=== PATIENT | female | born 1995 | race African-American/Black ===

== ENCOUNTER 2016-07-07 02:02 | Emergency (ER) | payer OTHER ==
[2016-07-07 02:33] VITALS: BP 118/75
[2016-07-07] MEDS ORDERED: Ondansetron INJ* 2 MG/ML VIAL IV ONE (02:42)
[2016-07-07] MEDS ORDERED: NS 0.9% 1000 ML* 2,000 ML IV ONE (02:42)
[2016-07-07 03:47] LABS: Hematocrit 45 % (35-47); Hemoglobin 14.6 g/dl (12.0-16.0); Mean Corpuscular HGB Conc 33 g/dl (31-36); Mean Corpuscular Hemoglobin 27 pg (27-31); Mean Corpuscular Volume 83 fL (80-97); Mean Platelet Volume 8 um3 (7.4-10.4); Red Blood Count 5.43 10^6/ul (4.0-5.4); Red Cell Distribution Width 14 % (10.5-15); White Blood Count 10.3 10^3/ul (3.5-10.8)
[2016-07-07 03:53] LABS: Add Diff/Slide Review? Slide Review Added; Comments Flag Yes
[2016-07-07 03:56] LABS: ALT 20 U/L (7-52); AST 20 U/L (13-39); Albumin 4.8 g/dL (3.2-5.2); Alkaline Phosphatase 60 U/L (34-104); Anion Gap 6 mmol/L (2-11); BUN/Creatinine Ratio 21.3 (8-20); Blood Urea Nitrogen 13 mg/dL (6-24); CO2 Carbon Dioxide 27 mmol/L (22-32); Calcium 9.8 mg/dL (8.6-10.3); Chloride 106 mmol/L (101-111); EGFR African American 160.8 (>60); Globulin 3.1 g/dL (2-4); Glucose 96 mg/dL (70-100); Lipase 10 U/L (11.0-82.0); Potassium 3.9 mmol/L (3.5-5.0); Sodium 139 mmol/L (133-145); Total Protein 7.9 g/dL (6.4-8.9)
[2016-07-07 03:59] LABS: Urine Bacteria Absent (Absent); Urine Bilirubin Negative (Negative); Urine Glucose Negative (Negative); Urine Nitrite Negative (Negative)
[2016-07-07] MEDS ORDERED: Iohexol 300* (CONTRAST) 10 ML SDV IV ONE (04:05)
--- NOTE | 2016-07-07 05:28 | ED ---
Zi Sharma Rebecca, scribed for Eric Melouel on 07/07/16 at 0243 . Abdominal Pain/Female - HPI Summary HPI Summary: Pt is a 21 y/o F who presents to ED c/o abd pain. Pain began suddenly 3 hours ago (2299) and has been constant since onset. Pain is diffuse without radiation , is characterized as aching and currently ranked 4/10. Sx aggravated and alleviated by nothing. Additionally c/o V/D since 2299, quoting 4 episodes of vomiting and countless bouts of diarrhea. Additionally c/o fever, stating recent "hot flashes" and constipation for weeks prior to current sx. PMHx "bad digestive system." - History of Current Complaint Chief Complaint: EDNauseaVomitDiarrh Stated Complaint: FLU LIKE SYMPTOMS Hx Obtained From: Patient Hx Last Menstrual Period: LAST WEEK IN DECEMBER 2014 Onset/Duration: Sudden Onset, Lasting Hours - 3 hours, Still Present Timing: Constant Severity Initially: Moderate Severity Currently: Moderate Pain Intensity: 4 Pain Scale Used: 0-10 Numeric Location: Diffuse Radiates: No Character: Dull Aggravating Factor(s): Nothing Alleviating Factor(s): Nothing Associated Signs and Symptoms: Positive: Fever, Constipation, Vomiting, Diarrhea Allergies/Adverse Reactions: Allergies Allergy/AdvReac Type Severity Reaction Status Date / Time Amoxicillin [From Augmentin] Allergy Unknown Unknown Verified 02/17/15 19:35 Reaction Details Clavulanic Acid Allergy Unknown Unknown Verified 02/17/15 19:35 [From Augmentin] Reaction Details PMH/Surg Hx/FS Hx/Imm Hx Endocrine/Hematology History: Denies: Hx Diabetes Cardiovascular History: Denies: Hx Hypertension GI History: Reports: Other GI Disorders - "bad digestive system" Infectious Disease History: No Infectious Disease History: Denies: Traveled Outside the [place] in Last 30 Days - Family History Known Family History: Negative: Hypertension, Diabetes - Social History Alcohol Use: None Substance Use Type: Reports: None Smoking Status (MU): Never Smoked Tobacco Review of Systems Positive: Fever - "hot flashes" Positive: Abdominal Pain - diffuse, Vomiting - 4x, Diarrhea, Other - Constipation for weeks prior to current sx All Other Systems Reviewed And Are Negative: Yes Physical Exam Triage Information Reviewed: Yes Vital Signs On Initial Exam: Initial Vitals Temp Pulse Resp BP Pulse Ox 98.3 F 92 14 118/75 100 07/07/16 02:30 07/07/16 02:30 07/07/16 02:30 07/07/16 02:30 07/07/16 02:30 Vital Signs Reviewed: Yes Appearance: Positive: Well-Appearing, No Pain Distress Skin: Positive: Warm, Skin Color Reflects Adequate Perfusion, Dry Head/Face: Positive: Normal Head/Face Inspection Eyes: Positive: EOMI, MARRY ENT: Positive: Normal ENT inspection Neck: Positive: Supple, Nontender Respiratory/Lung Sounds: Positive: Clear to Auscultation, Breath Sounds Present Cardiovascular: Positive: RRR, Pulses are Symmetrical in both Upper and Lower Extremities Abdomen Description: Positive: Soft. Negative: Nontender - Diffuse tenderness of the abdomen Bowel Sounds: Positive: Present Musculoskeletal: Positive: Normal, Strength/ROM Intact Neurological: Positive: Normal, Sensory/Motor Intact, Alert, Oriented to Person Place, Time Diagnostics - Vital Signs Vital Signs Temp Pulse Resp BP Pulse Ox 07/07/16 02:30 98.3 F 92 14 118/75 100 - Laboratory Result Diagrams: 07/07/16 03:30 07/07/16 03:30 Lab Statement: Any lab studies that have been ordered have been reviewed, and results considered in the medical decision making process. - CT CT Abd/Pel CT Interpretation: No Acute Changes - No inflammatory process identified in the abdomen or pelvis. No abdominal mass, adenopathy or collection seen. CT Interpretation Completed By: Radiologist Abdominal Pain Fem Course/Dx - Course Course Of Treatment: Pt is a 21 y/o F who presents to ED with a CC of V/D for 3 hours. Additionally c/o fevers/"hot flashes" and constipation (for weeks prior to tonight's sx). CT Abd/Pel reveals no acute abdominal pathology. Pt will be d/ c to home with a dx of gastroenteritis and a followup with her PCP. - Diagnoses Provider Diagnoses: Gastroenteritis Discharge - Discharge Plan Condition: Stable Disposition: HOME Prescriptions: Ondansetron [Zofran Odt] 4 mg PO TID #20 tab Patient Education Materials: Gastroenteritis (ED) Referrals: ARTHUR Tobin [Primary Care Provider] - 3 Days (Follow up with your primary care physician within the next 3 days. ) The documentation as recorded by the Zi cha Rebecca accurately reflects the service I personally performed and the decisions made by me, Balaji Melo.
--- NOTE | 2016-07-07 08:25 | RAD ---
CLINICAL HISTORY: Diverticulitis, nausea vomiting and diarrhea COMPARISON: None TECHNIQUE: Multiple contiguous axial CT scans were obtained of the abdomen and pelvis after the administration of intravenous contrast. Coronal and sagittal multiplanar reformations are submitted for review. Oral contrast was not administered. Delayed images were obtained through the abdomen FINDINGS: LUNG BASES: The lung bases are clear. LIVER: The liver is normal in shape, size, contour, and attenuation. BILE DUCTS: There is no intrahepatic or extrahepatic biliary dilatation. GALLBLADDER: The gallbladder is normal, without pericholecystic inflammatory change. PANCREAS: The pancreas is normal, without mass or ductal dilatation. SPLEEN: Normal in size and appearance. UPPER GI TRACT: Evaluation of the gastrointestinal tract is limited by incomplete gastric distention. The upper GI tract is unremarkable. SMALL BOWEL AND MESENTERY: The small bowel is normal in contour, course, and caliber. There is no obstruction or dilatation. COLON: The colon is normal in contour, course, caliber. There is no pericolonic inflammatory change. ADRENALS: Normal bilaterally. KIDNEYS: The kidneys are normal in shape, size, contour, and axis. There is no hydronephrosis or nephrolithiasis. BLADDER: The bladder is smooth in contour. PELVIC ORGANS: There is enlargement of the gonadal veins bilaterally with prominence of the vasculature along the broad ligaments bilaterally. AORTA: The aorta is normal. IVC: Unremarkable LYMPH NODES: There is no lymphadenopathy by size criteria. ABDOMINAL WALL: There is no evidence for abdominal wall hernia. BONES AND SOFT TISSUES: Unremarkable OTHER: None IMPRESSION: 1. NO OBSTRUCTION. 2. PROMINENCE OF THE VASCULATURE ALONG THE BROAD LIGAMENTS BILATERALLY WITH ENLARGEMENT OF THE GONADAL VEINS. WHILE NONSPECIFIC, THIS CAN BE SEEN IN ASSOCIATION WITH PELVIC CONGESTION SYNDROME
== END 2016-07-07 05:05 | disposition home or self-care (01) ==
LOC: ED 02:02
DX: K52.9 Noninfective gastroenteritis and colitis, unspecified (principal); R10.9 Unspecified abdominal pain; R11.10 Vomiting, unspecified; R19.7 Diarrhea, unspecified; K59.00 Constipation, unspecified
CPT/HCPCS: 36415; 74177; 80053; 81003; 81015; 83690; 84702; 85025; 87086; 96374; 96375; 99282; J2405; Q9967

== ENCOUNTER 2017-02-16 20:17 | Emergency (ER) | payer OTHER ==
[2017-02-16 20:29] VITALS: BP 122/69
--- NOTE | 2017-02-16 21:42 | UC ---
Throat Pain/Nasal Gerhard HPI - HPI Summary HPI Summary: 21 y/o female presents to the urgent care c/o sore throat, nasal congestion, productive cough and ear popping since yesterday. Pt states difficulty swallowing, pain is 7/10. She has decrease appetite with subjective fever at home. She has not taking anything to alleviate symptoms. Pt denies SOB, chest pain, N/V/D - History of Current Complaint Chief Complaint: UCRespiratory Stated Complaint: CONGESTION/SORE THROAT Time Seen by Provider: 02/16/17 21:34 Hx Obtained From: Patient Hx Last Menstrual Period: LAST WEEK IN DECEMBER 2014 ?: No Onset/Duration: Gradual Onset, Lasting Days, Still Present Severity: Moderate Pain Intensity: 7 Pain Scale Used: 0-10 Numeric Cough: Productive - clear phlegm Associated Signs & Symptoms: Positive: Dysphagia, Fever - subjective at home - Epiglottits Risk Factors Epiglottis Risk Factors: Negative - Allergies/Home Medications Allergies/Adverse Reactions: Allergies Allergy/AdvReac Type Severity Reaction Status Date / Time Amoxicillin [From Augmentin] Allergy Unknown Unknown Verified 02/16/17 20:29 Reaction Details Clavulanic Acid Allergy Unknown Unknown Verified 02/16/17 20:29 [From Augmentin] Reaction Details Home Medications: Home Medications ARIPiprazole TAB* [Abilify TAB*] 5 mg PO DAILY 02/16/17 [History Confirmed 11/27] Escitalopram Oxalate [Lexapro 10 mg] 10 mg PO DAILY 02/16/17 [History Confirmed 02/16/17] PMH/Surg Hx/FS Hx/Imm Hx Previously Healthy: Yes Psychological History: Depression - Surgical History Surgical History: None - Family History Known Family History: Negative: Hypertension, Diabetes Family History: Asthma - Social History Occupation: Employed Full-time Lives: With Family Alcohol Use: None Substance Use Type: None Smoking Status (MU): Never Smoked Tobacco Household Exposure Type: Cigarettes - Immunization History Most Recent Influenza Vaccination: Not the Vaccination Up to Date: Yes Review of Systems Constitutional: Fever - subjective at home Skin: Negative Eyes: Negative ENT: Sore Throat, Nasal Discharge - clear discharge Respiratory: Cough - productive Cardiovascular: Negative Gastrointestinal: Negative Genitourinary: Negative Motor: Negative Neurovascular: Negative Musculoskeletal: Negative Neurological: Negative Psychological: Negative Is Patient Immunocompromised?: No All Other Systems Reviewed And Are Negative: Yes Physical Exam Triage Information Reviewed: Yes Appearance: Well-Appearing, No Pain Distress, Well-Nourished Vital Signs: Initial Vital Signs Temp 100.4 F 02/16/17 20:23 Pulse 87 02/16/17 20:23 Resp 17 02/16/17 20:23 BP 122/69 02/16/17 20:23 Pulse Ox 100 02/16/17 20:23 Vital Signs Reviewed: Yes Eye Exam: Normal Eyes: Positive: Conjunctiva Clear - PERRLA, EOMI ENT: Positive: Normal ENT inspection, Hearing grossly normal, Pharyngeal erythema, TMs normal, Tonsillar swelling. Negative: Nasal congestion, Nasal drainage, Tonsillar exudate Neck exam: Normal Neck: Positive: Supple, Nontender, No Lymphadenopathy Respiratory Exam: Normal Respiratory: Positive: Chest non-tender, Lungs clear, Normal breath sounds Cardiovascular Exam: Normal Cardiovascular: Positive: RRR, No Murmur, Pulses Normal Abdominal Exam: Normal Abdomen Description: Positive: Nontender, No Organomegaly, Soft. Negative: CVA Tenderness (R), CVA Tenderness (L) Bowel Sounds: Positive: Present Musculoskeletal Exam: Normal Musculoskeletal: Positive: Strength Intact, ROM Intact, No Edema Neurological Exam: Normal Psychological Exam: Normal Skin Exam: Normal Throat Pain/Nasal Course/Dx - Course Course Of Treatment: 21 y/o female presents to the urgent care c/o sore throat, nasal congestion, productive cough and ear popping since yesterday. Pt states difficulty swallowing, pain is 7/10. She has decrease appetite with subjective fever at home. She has not taking anything to alleviate symptoms. Pt denies SOB , chest pain, N/V/D. Rapid strep: negative. Pt with a Viral pharyngitis. Pt Rx ibuprofen PO to alleviates symptoms of pain and swelling. Increse fluid intake, and rest. Advised on hand washing to avoid spreading. If symptoms do not improve or worsen advised to return to the urgent care or f/u with her PCP for further evaluation and treatment. Pt understood and agreed - Differential Dx/Diagnosis Differential Diagnosis/HQI/PQRI: Laryngitis, Mononucleosis, Otitis Media, Pharyngitis, Sinusitis, Tonsillitis Provider Diagnoses: 1- Viral pharyngitis Discharge - Discharge Plan Condition: Stable Disposition: HOME Prescriptions: Ibuprofen TAB* [Motrin TAB* 800 MG] 800 mg PO Q6H #20 tab Patient Education Materials: Pharyngitis (ED) Forms: *Work Release Referrals: Dillan Pagan MD [Primary Care Provider] - If Needed Additional Instructions: 1-Please take ibuprofen PO q6-8hrs prn as instructed after meals to alleviate pain and swelling.Increase fluid intake,eat well and rest 2-If symptoms do not improve or worsen please return to the urgent care or f/u with your PCP for further evaluation and treatment.
[2017-02-16] MEDS ORDERED: Ibuprofen TAB* 400 MG PO ONE (21:43)
== END 2017-02-16 21:52 | disposition home or self-care (01) ==
LOC: UCCORT 20:17
DX: J02.8 Acute pharyngitis due to other specified organisms (principal); F32.9 Major depressive disorder, single episode, unspecified; Z88.3 Allergy status to other anti-infective agents
CPT/HCPCS: 87651; 99212; A9270-GY; G0463

== ENCOUNTER 2017-03-16 09:47 | Emergency (ER) | payer OTHER ==
[2017-03-16 10:16] VITALS: BP 117/73
--- NOTE | 2017-03-16 10:37 | UC ---
Skin Complaint HPI - HPI Summary HPI Summary: Patient presents to the with CC of small lesion to the lower lip. She states she has a history of herpes type II and has not had an outbreak for over 2 years. She thought she bit her lip and has used benadryl 50mg and ice to the area x 2 days without relief. She also notes to a small red bump under the left lower medial lid of the eye resembling a stye. She has been stressed recently and states usually she has an out break when she is stressed. There is a small ulcerative lesion on the inside of the lower lip just behind the outer lip lesion resembling a aphthous stomatitis. She denies WARE, abdominal pain , fevers, sweats or chills. Otherwise healthy and takes no medications. - History of Current Complaint Chief Complaint: UCAllergicReaction Time Seen by Provider: 03/16/17 09:58 Stated Complaint: ALLERGIC REACTION Hx Obtained From: Patient Hx Last Menstrual Period: 03/14/17 ?: No Onset/Duration: Sudden Onset Skin Exposure Onset/Duration: Days Ago Timing: Constant Onset Severity: Moderate Current Severity: Moderate Pain Intensity: 2 Pain Scale Used: 0-10 Numeric Location: Face Character: Swelling, Redness, Raised Aggravating Factor(s): Touch Alleviating Factor(s): Cold Compresses Associated Signs & Symptoms: Positive: Negative - Allergy/Home Medications Allergies/Adverse Reactions: Allergies Allergy/AdvReac Type Severity Reaction Status Date / Time Amoxicillin [From Augmentin] Allergy Unknown Unknown Verified 03/16/17 09:51 Reaction Details Clavulanic Acid Allergy Unknown Unknown Verified 03/16/17 09:51 [From Augmentin] Reaction Details Home Medications: Home Medications diPHENhydraMINE PO* [Benadryl PO 25 MG TAB*] 50 mg PO Q6H PRN 03/16/17 [History Confirmed 03/16/17] hydrOXYzine HCL TAB* [Atarax 10 MG TAB*] 10 mg PO DAILY 03/16/17 [History Confirmed 03/16/17] Review of Systems Constitutional: Negative Skin: Other - lesion just inferior to the right lower lip with 2 small vesicles Eyes: Negative Respiratory: Negative Cardiovascular: Negative Motor: Negative Neurovascular: Negative Neurological: Negative Psychological: Negative Is Patient Immunocompromised?: No All Other Systems Reviewed And Are Negative: Yes PMH/Surg Hx/FS Hx/Imm Hx Previously Healthy: Yes - Surgical History Surgical History: None - Family History Known Family History: Negative: Hypertension, Diabetes Family History: Asthma - Social History Occupation: Employed Part-time Lives: With Family Alcohol Use: None Substance Use Type: None Smoking Status (MU): Never Smoked Tobacco Household Exposure Type: Cigarettes - Immunization History Most Recent Influenza Vaccination: Not the Season Vaccination Up to Date: Yes Physical Exam Triage Information Reviewed: Yes Appearance: Well-Appearing, Well-Nourished Vital Signs: Initial Vital Signs Temp 98.6 F 03/16/17 09:54 Pulse 76 03/16/17 09:54 Resp 18 03/16/17 09:54 BP 117/73 03/16/17 09:54 Pulse Ox 100 03/16/17 09:54 Vital Signs Reviewed: Yes Eye Exam: Normal Eyes: Positive: Conjunctiva Clear, Other: - small lesion to the medial left lower eyelid resembling a stye - painful to touch - .1cm Neck exam: Normal Neck: Positive: Supple, No Lymphadenopathy Respiratory Exam: Normal Respiratory: Positive: Chest non-tender, Lungs clear Cardiovascular Exam: Normal Cardiovascular: Positive: RRR Musculoskeletal Exam: Normal Musculoskeletal: Positive: Strength Intact Neurological Exam: Normal Psychological Exam: Normal Psychological: Positive: Normal Response To Family Skin: Positive: significant lesion(s) - lesion just inferior to the right lower lip Course/Dx - Course Course Of Treatment: Patient is evaluated for a lesion just inferior to the right lower lip with 2 small vesicles and small lesion to the medial left lower eyelid resembling a stye - painful to touch - .1cm. 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 Will defer at this time any optho abx d/t size and recent appearance yesterday. Likely will improve with warm compresses. Given instructions to take Lysine 1000mg daily to prevent further outbreaks, use ice and tea tree oil. Given rx for abreva and valacyclovir 1000mg TID x 7 days for outbreak. She is OK with plan and will return for any worsening symptoms. - Differential Diagnoses - Skin Complaint Differential Diagnoses: Allergic Reaction, Impetigo, Urticaria - Diagnoses Provider Diagnoses: Herpes Simplex/ Stye Discharge - Discharge Plan Condition: Stable Disposition: HOME Prescriptions: Docosanol 10%* [Abreva 10%*] 1 applic TOPICAL 5ID #1 cre ValACYclovir (*) [Valtrex 1 GM(*)] 1 gm PO DAILY #21 tab Patient Education Materials: Genital Herpes Simplex (ED), Stye (ED) Referrals: Dillan Pagan MD [Primary Care Provider] - Additional Instructions: warm compresses to the eye 3-4 times per day tea tree oil, abreva (5 x daily) - rub in very well and ice to the lip Lysine 1000mg once daily, when having an outbreak - 6000mg once daily Valacyclovir 1000mg three times daily for 7 days Images Head: 1 - lesion just inferior to the right lower lip 2 - small .1 cm painful red lesion without surrounding erythema or eye involvement
== END 2017-03-16 10:31 | disposition home or self-care (01) ==
LOC: UCCORT 09:47
DX: B00.9 Herpesviral infection, unspecified (principal); H00.015 Hordeolum externum left lower eyelid; Z88.1 Allergy status to other antibiotic agents
CPT/HCPCS: 99212; G0463

== ENCOUNTER 2017-06-22 15:58 | Emergency (ER) | payer OTHER ==
--- NOTE | 2017-06-22 16:38 | UC ---
Skin Complaint HPI - HPI Summary HPI Summary: 22 year old female presents with oral lower lip blister. - History of Current Complaint Time Seen by Provider: 06/22/17 16:38 Stated Complaint: LIP COMPLAINT Hx Obtained From: Patient Hx Last Menstrual Period: LAST WEEK IN DECEMBER 2014 Onset/Duration: Sudden Onset Skin Exposure Onset/Duration: Hours Ago Onset Severity: Moderate Current Severity: Moderate Pain Scale Used: 0-10 Numeric - 2 Location: Discrete, Face Aggravating Factor(s): Wind Alleviating Factor(s): Nothing Associated Signs & Symptoms: Positive: Negative - Allergy/Home Medications Allergies/Adverse Reactions: Allergies Allergy/AdvReac Type Severity Reaction Status Date / Time Amoxicillin [From Augmentin] Allergy Unknown Unknown Verified 06/22/17 16:33 Reaction Details Clavulanic Acid Allergy Unknown Unknown Verified 06/22/17 16:33 [From Augmentin] Reaction Details Home Medications: Home Medications Nuva Ring 06/22/17 [History] Review of Systems Constitutional: Negative Skin: Negative Eyes: Negative ENT: Other - lower lip blister Respiratory: Negative Cardiovascular: Negative Gastrointestinal: Negative Genitourinary: Negative Motor: Negative Neurovascular: Negative Musculoskeletal: Negative Neurological: Negative Psychological: Negative All Other Systems Reviewed And Are Negative: Yes PMH/Surg Hx/FS Hx/Imm Hx Previously Healthy: Yes - Surgical History Surgical History: None - Family History Known Family History: Negative: Hypertension, Diabetes Family History: Asthma - Social History Alcohol Use: None Substance Use Type: None Smoking Status (MU): Never Smoked Tobacco Household Exposure Type: Cigarettes - Immunization History Most Recent Influenza Vaccination: Not the Season Vaccination Up to Date: Yes Physical Exam Triage Information Reviewed: Yes Vital Signs Reviewed: Yes Eye Exam: Normal ENT: Positive: Other - lower lip blister Dental Exam: Normal Neck exam: Normal Neck: Positive: 1 Respiratory Exam: Normal Cardiovascular Exam: Normal Abdominal Exam: Normal Musculoskeletal Exam: Normal Neurological Exam: Normal Psychological Exam: Normal Skin Exam: Normal Course/Dx - Diagnoses Provider Diagnoses: blister lower lip Discharge - Discharge Plan Condition: Stable Disposition: HOME Prescriptions: Acyclovir* [Zovirax 200 MG CAP*] 200 mg PO 5ID #35 cap LoraTADine TAB(NF) [Claritin 10 MG TAB(NF)] 10 mg PO DAILY #30 tab Methylprednisolone [Medrol Dosepak 4 MG*] 4 mg PO .SEE JESSY INSTRUCTION #21 tab Patient Education Materials: Blister (ED) Referrals: No Primary Care Phys,NOPCP [Primary Care Provider] -
[2017-06-22 16:41] VITALS: BP 123/74
== END 2017-06-22 16:58 | disposition home or self-care (01) ==
LOC: UCCORT 15:58
DX: S00.521A Blister (nonthermal) of lip, initial encounter (principal); X58.XXXA Exposure to other specified factors, initial encounter; Y93.9 Activity, unspecified; Y92.9 Unspecified place or not applicable; Z88.1 Allergy status to other antibiotic agents; Z77.22 Contact with and (suspected) exposure to environmental tobacco smoke (acute) (chronic)
CPT/HCPCS: 99212; G0463

== ENCOUNTER 2017-07-04 08:37 | Emergency (ER) | payer OTHER ==
[2017-07-04 09:08] VITALS: BP 121/82
--- NOTE | 2017-07-04 09:47 | UC ---
Rectal Pain HPI - HPI Summary HPI Summary: Pt c/o BRBPR this morning with BM. Pt has history of hemorrhoids and constipation. Pt states she has been constipated X 5 days. - History Of Current Complaint Chief Complaint: UCGeneralIllness Stated Complaint: PERSONAL Time Seen by Provider: 07/04/17 08:41 Hx Obtained From: Patient Hx Last Menstrual Period: 06/06/17 ?: No Onset/Duration: Gradual Onset Severity Initially: Mild Severity Currently: Mild Pain Intensity: 7 Pain Scale Used: 0-10 Numeric Location Of Pain: Anal Character: Sharp, Burning Aggravating Factor(s): Bowel Movement Alleviating Factor(s): Hemorroidal Meds - Tucks OTC Associated Signs And Symptoms: Positive: Rectal Bleeding, Bright Red Blood w/ Stool, Constipation Related History: Similar Episode/Dx As - hemorrhoids and constipation, Hemorrhoids - Allergies/Home Medications Allergies/Adverse Reactions: Allergies Allergy/AdvReac Type Severity Reaction Status Date / Time Amoxicillin [From Augmentin] Allergy Unknown Unknown Verified 07/04/17 09:00 Reaction Details Clavulanic Acid Allergy Unknown Unknown Verified 07/04/17 09:00 [From Augmentin] Reaction Details Acyclovir Allergy See Comment Verified 07/04/17 09:05 PMH/Surg Hx/FS Hx/Imm Hx Previously Healthy: Yes - Surgical History Surgical History: None - Family History Known Family History: Negative: Hypertension, Diabetes Family History: Asthma - Social History Occupation: Employed Full-time Lives: With Family Alcohol Use: None Substance Use Type: None Smoking Status (MU): Never Smoked Tobacco Have You Smoked in the Last Year: No Household Exposure Type: Cigarettes - Immunization History Most Recent Influenza Vaccination: Not the Season Vaccination Up to Date: Yes Review of Systems Constitutional: Negative Skin: Negative Eyes: Negative ENT: Negative Respiratory: Negative Cardiovascular: Negative Gastrointestinal: Abdominal Pain, Other - constipation, BRBPM Genitourinary: Negative Motor: Negative Neurovascular: Negative Musculoskeletal: Negative Neurological: Negative Psychological: Negative Is Patient Immunocompromised?: No All Other Systems Reviewed And Are Negative: Yes Physical Exam Triage Information Reviewed: Yes Appearance: Well-Appearing Vital Signs: Initial Vital Signs Temp 99.4 F 07/04/17 09:06 Pulse 111 07/04/17 09:06 Resp 18 07/04/17 09:06 BP 121/82 07/04/17 09:06 Pulse Ox 100 07/04/17 09:06 Vital Signs Reviewed: Yes Eye Exam: Normal ENT Exam: Normal Dental Exam: Normal Neck exam: Normal Respiratory: Positive: No respiratory distress Abdomen Description: Positive: Other: - rectal exam, no hemorrhoids appreciated , no fissure appreciated, Bowel Sounds: Positive: Present Musculoskeletal Exam: Normal Neurological Exam: Normal Psychological Exam: Normal Skin Exam: Normal Rectal Pain Course/Dx - Course Course Of Treatment: I discussed with the pt ways to manage her c/o of constirpation and possible internal hemorrhoids. I encouraged her to f/u with her PCP and if symptoms worsen to seek medical care at the closest ER . Pt verbalized understanding and agreed to plan of care. - Differential Dx/Diagnosis Differential Diagnosis/HQI/PQRI: Hemorrhoid(s), Rectal Fissure, Other - constipation Provider Diagnoses: constipation. hemorrhoids Discharge - Discharge Plan Condition: Stable Disposition: HOME Patient Education Materials: Constipation (ED), Hemorrhoids (ED) Forms: *Work Release Referrals: No Primary Care Phys,NOPCP [Primary Care Provider] - If Needed Additional Instructions: to help alleviate your complaint of constipation and diagnoses of hemorrhoids, please keep well hydrated, eat a diet high in fiber and use of Over the counter colace to be used as directed.
== END 2017-07-04 09:35 | disposition home or self-care (01) ==
LOC: UCCORT 08:37
DX: K59.00 Constipation, unspecified (principal); K64.9 Unspecified hemorrhoids
CPT/HCPCS: 99211; G0463

== ENCOUNTER 2017-07-08 11:44 | Emergency (ER) | payer OTHER ==
[2017-07-08 12:56] VITALS: BP 102/68
--- NOTE | 2017-07-08 13:25 | UC ---
Complaint Female HPI - HPI Summary HPI Summary: 2 DAYS DYSURIA, FREQUENCY AND URGENCY. NO FEVER, NAUSEA OR BACK PAIN. NO VAGINAL D/C. IS CURRENTLY ON MENSES. - History Of Current Complaint Chief Complaint: UCGU Stated Complaint: URINARY Time Seen by Provider: 07/08/17 13:11 Hx Obtained From: Patient Hx Last Menstrual Period: 07/08/17 Onset/Duration: Sudden Onset, Lasting Days, Still Present Timing: Constant Severity Initially: Moderate Severity Currently: Moderate Pain Intensity: 4 Pain Scale Used: 0-10 Numeric Character: Burning Aggravating Factor(s): Urination Alleviating Factor(s): Nothing Associated Signs And Symptoms: Negative: Fever, Back Pain, Vaginal Discharge, Nausea - Allergies/Home Medications Allergies/Adverse Reactions: Allergies Allergy/AdvReac Type Severity Reaction Status Date / Time Amoxicillin [From Augmentin] Allergy Unknown Unknown Verified 07/08/17 12:50 Reaction Details Clavulanic Acid Allergy Unknown Unknown Verified 07/08/17 12:50 [From Augmentin] Reaction Details Acyclovir Allergy See Comment Verified 07/08/17 12:50 PMH/Surg Hx/FS Hx/Imm Hx - Additional Past Medical History Additional PMH: ALLERGIES - Surgical History Surgical History: None - Family History Known Family History: Negative: Hypertension, Diabetes Family History: Asthma - Social History Alcohol Use: None Substance Use Type: None Smoking Status (MU): Never Smoked Tobacco Have You Smoked in the Last Year: No Household Exposure Type: Cigarettes - Immunization History Most Recent Influenza Vaccination: Not the Season Most Recent Tetanus Shot: UTD Vaccination Up to Date: Yes Review of Systems Constitutional: Negative Respiratory: Negative Cardiovascular: Negative Gastrointestinal: Abdominal Pain Genitourinary: Dysuria, Frequency, Urgency All Other Systems Reviewed And Are Negative: Yes Physical Exam Triage Information Reviewed: Yes Appearance: Well-Appearing, No Pain Distress, Well-Nourished Vital Signs: Initial Vital Signs Temp 98.1 F 07/08/17 12:51 Pulse 80 07/08/17 12:51 Resp 16 07/08/17 12:51 BP 102/68 07/08/17 12:51 Pulse Ox 100 07/08/17 12:51 Vital Signs Reviewed: Yes Eyes: Positive: Conjunctiva Clear ENT: Positive: Hearing grossly normal Neck: Positive: Supple Respiratory: Positive: No respiratory distress, No accessory muscle use Cardiovascular: Positive: Pulses Normal Abdomen Description: Positive: Soft, Other: - SUPRAPUBIC TTP. Negative: CVA Tenderness (R), CVA Tenderness (L), Distended, Guarding Musculoskeletal: Positive: No Edema Neurological: Positive: Alert Psychological: Positive: Age Appropriate Behavior Skin: Negative: rashes Diagnostics - Laboratory Diagnostic Studies Completed/Ordered: URINE DIP SP. GR. 1.015, 1+ LEUKS, 2+ BLOOD (PT ON MENSES) Complaint Female Dx - Differential Dx/Diagnosis Provider Diagnoses: UTI Discharge - Discharge Plan Condition: Stable Disposition: HOME Prescriptions: Phenazopyridine TAB* [Pyridium TAB*] 200 mg PO TID #6 tab Sulfamethox/Trimethoprim DS* [Bactrim DS 800/160 TAB*] 1 tab PO BID #10 tab Patient Education Materials: Urinary Tract Infection in Women (ED) Forms: *Work Release Referrals: Shahla Guerra MD [Medical Doctor] - If Needed
--- NOTE | 2017-07-11 06:58 | UC ---
- Progress Note Progress Note: notify pt stop antibiotic no UTI recheck if still symptomatic
== END 2017-07-08 13:34 | disposition home or self-care (01) ==
LOC: UCCORT 11:44
DX: N39.0 Urinary tract infection, site not specified (principal)
CPT/HCPCS: 81003; 87086; 99212; G0463

== ENCOUNTER 2017-11-03 10:57 | Emergency (ER) | payer SELFPAY ==
[2017-11-03 11:24] VITALS: BP 125/81
--- NOTE | 2017-11-03 12:49 | UC ---
Skin Complaint HPI - HPI Summary HPI Summary: 22 yo female was out last PM fishing until 11 this am woke with s probable bite to her back burning pain swelling no itch hx of MRSA no hx of chicken pox no f/c - History of Current Complaint Chief Complaint: UCSkin Time Seen by Provider: 11/03/17 12:36 Stated Complaint: INSECT BITE ON BACK Hx Obtained From: Patient Hx Last Menstrual Period: 10/05/17 Onset/Duration: Sudden Onset Skin Exposure Onset/Duration: Hours Ago Timing: Constant Onset Severity: Moderate Current Severity: Moderate Pain Intensity: 7 Pain Scale Used: 0-10 Numeric Location: Other - left lower back Character: Swelling, Pain, Redness Aggravating Factor(s): Nothing Alleviating Factor(s): Nothing Associated Signs & Symptoms: Positive: Tenderness Related History: Insect Bite/Sting - Allergy/Home Medications Allergies/Adverse Reactions: Allergies Allergy/AdvReac Type Severity Reaction Status Date / Time MS Amoxicillin Allergy Unknown Unknown Verified 07/08/17 12:50 [From Augmentin] Reaction Details MS Clavulanic Acid Allergy Unknown Unknown Verified 07/08/17 12:50 [From Augmentin] Reaction Details MS Acyclovir [Acyclovir] Allergy See Comment Verified 07/08/17 12:50 Review of Systems Constitutional: Negative Skin: Negative Eyes: Negative ENT: Negative Respiratory: Negative Cardiovascular: Negative Gastrointestinal: Negative Genitourinary: Negative Motor: Negative Neurovascular: Negative Musculoskeletal: Negative Neurological: Negative Psychological: Negative Is Patient Immunocompromised?: No All Other Systems Reviewed And Are Negative: Yes PMH/Surg Hx/FS Hx/Imm Hx Previously Healthy: Yes - Surgical History Surgical History: None - Family History Known Family History: Negative: Hypertension, Diabetes Family History: Asthma - Social History Alcohol Use: None Substance Use Type: None Smoking Status (MU): Never Smoked Tobacco Have You Smoked in the Last Year: No Household Exposure Type: Cigarettes - Immunization History Most Recent Influenza Vaccination: Not the Season Most Recent Tetanus Shot: UTD Vaccination Up to Date: Yes Physical Exam Triage Information Reviewed: Yes Appearance: Well-Appearing, No Pain Distress, Well-Nourished Vital Signs: Initial Vital Signs Temp 99.1 F 11/03/17 11:17 Pulse 74 11/03/17 11:17 Resp 15 11/03/17 11:17 BP 125/81 11/03/17 11:17 Pulse Ox 100 11/03/17 11:17 Eyes: Positive: Conjunctiva Clear ENT: Negative: Nasal drainage, TMs normal, Trismus, Muffled voice, Hoarse voice Neck: Positive: Supple, Nontender Respiratory: Positive: Lungs clear, Normal breath sounds, No respiratory distress, No accessory muscle use Cardiovascular: Positive: RRR, No Murmur Musculoskeletal: Positive: ROM Intact, No Edema Neurological: Positive: Alert Psychological Exam: Normal Skin Exam: Other - see image Course/Dx - Course Course Of Treatment: advised to recheck tomorrow if not better - Diagnoses Provider Diagnoses: suspect spider bite Discharge - Sign-Out/Discharge Documenting (check all that apply): Discharge/Admit/Transfer - Discharge Plan Condition: Stable Disposition: HOME Prescriptions: Sulfamethox/Trimethoprim DS* [Bactrim DS 800/160 TAB*] 1 tab PO BID #14 tab Patient Education Materials: Insect Bite or Sting (ED) Referrals: No Primary Care Phys,NOPCP [Primary Care Provider] - Additional Instructions: possible spider bite given your history of MRSA with will have you start bactrim recheck tomorrow if worse - Billing Disposition and Condition Condition: STABLE Disposition: HOME Images Front/Back of Body, Lg ([place]): 1 - ovoid/red/raised/no vesicles/not flutuant
== END 2017-11-03 12:53 | disposition home or self-care (01) ==
LOC: UCCORT 10:57
DX: Z03.89 Encounter for observation for other suspected diseases and conditions ruled out (principal); Z88.0 Allergy status to penicillin; Z88.1 Allergy status to other antibiotic agents
CPT/HCPCS: 99212; G0463

== ENCOUNTER 2017-11-30 12:55 | Emergency (ER) | payer MEDICAID ==
[2017-11-30 13:17] VITALS: BP 120/68
--- NOTE | 2017-11-30 13:26 | UC ---
General HPI - HPI Summary HPI Summary: Pt c/o worsening anxiety symptoms of insomnia and chest tightness. Pt "ran out " of her abilify 2 weeks ago, is waiting to be scheduled with new PCP and states that anxiety symptoms are worsening. - History of Current Complaint Chief Complaint: UCPsych Stated Complaint: ANXIETY Time Seen by Provider: 11/30/17 13:18 Hx Obtained From: Patient Hx Last Menstrual Period: ~11/02/17 Onset/Duration: Gradual Onset, Lasting Weeks, Still Present, Worse Since - onset Timing: Intermittent Episodes Lasting: Onset Severity: Moderate Current Severity: None Pain Intensity: 0 Associated Signs & Symptoms: Positive: Chest Pain, Palpitations, Other - insomnia - Allergy/Home Medications Allergies/Adverse Reactions: Allergies Allergy/AdvReac Type Severity Reaction Status Date / Time acyclovir Allergy Vision Loss Verified 11/30/17 13:08 amoxicillin [From Augmentin] Allergy Unknown Verified 11/30/17 13:08 Reaction Details clavulanic acid Allergy Unknown Verified 11/30/17 13:08 [From Augmentin] Reaction Details Home Medications: Home Medications Budesonide/Formote 80/4.5(NF) [Symbicort 80/4.5 (NF)] 1 puff INH DAILY 11/30/17 [History Confirmed 11/30/17] Sertraline* [Zoloft*] 50 mg PO ONCE 11/30/17 [History Confirmed 11/30/17] PMH/Surg Hx/FS Hx/Imm Hx Previously Healthy: Yes Psychological History: Anxiety, Depression - Surgical History Surgical History: None - Family History Known Family History: Negative: Hypertension, Diabetes Family History: Asthma - Social History Occupation: Employed Full-time Lives: With Family Alcohol Use: None Substance Use Type: None Smoking Status (MU): Never Smoked Tobacco Have You Smoked in the Last Year: No Household Exposure Type: Cigarettes - Immunization History Most Recent Influenza Vaccination: Not the 2013/2014 Season Most Recent Tetanus Shot: UTD Vaccination Up to Date: Yes Review of Systems Constitutional: Negative Skin: Negative Eyes: Negative ENT: Negative Respiratory: Negative Cardiovascular: Palpitations, Chest Pain Gastrointestinal: Negative Genitourinary: Negative Motor: Negative Neurovascular: Negative Musculoskeletal: Negative Neurological: Negative Psychological: Anxious Is Patient Immunocompromised?: No All Other Systems Reviewed And Are Negative: Yes Physical Exam Triage Information Reviewed: Yes Appearance: Well-Appearing Vital Signs: Initial Vital Signs Temp 98.7 F 11/30/17 13:04 Pulse 72 11/30/17 13:04 Resp 16 11/30/17 13:04 BP 120/68 11/30/17 13:04 Pulse Ox 100 11/30/17 13:04 Eye Exam: Normal ENT: Positive: Hearing grossly normal Dental Exam: Normal Neck exam: Normal Respiratory Exam: Normal Cardiovascular Exam: Normal Musculoskeletal Exam: Normal Neurological Exam: Normal Psychological Exam: Normal Skin Exam: Normal Course/Dx - Differential Dx - Multi-Symptom Differential Diagnoses: Other - anxiety Provider Diagnoses: anxiety. medication refill Discharge - Sign-Out/Discharge Documenting (check all that apply): Discharge/Admit/Transfer - Discharge Plan Condition: Stable Disposition: HOME Prescriptions: ARIPiprazole TAB* [Abilify TAB*] 5 mg PO DAILY #14 tab LORazepam TAB(*) [Ativan 0.5 MG TAB (*)] 0.5 mg PO BEDTIME PRN #5 tab MDD 1 PRN Reason: Anxiety Patient Education Materials: Anxiety (ED) Forms: *Work Release Referrals: Shahla Guerra MD [Medical Doctor] - As Soon As Possible No Primary Care Phys,NOPCP [Primary Care Provider] - - Billing Disposition and Condition Condition: STABLE Disposition: Home
== END 2017-11-30 13:37 | disposition home or self-care (01) ==
LOC: UCCORT 12:55
DX: F41.8 Other specified anxiety disorders (principal); Z88.3 Allergy status to other anti-infective agents; Z88.0 Allergy status to penicillin; Z88.8 Allergy status to other drugs, medicaments and biological substances
CPT/HCPCS: 99212; G0463

== ENCOUNTER 2017-12-17 09:40 | Emergency (ER) | payer MEDICAID ==
[2017-12-17 09:54] VITALS: BP 128/85
--- NOTE | 2017-12-17 10:05 | UC ---
UC General HPI - HPI Summary HPI Summary: Patient has not had a cycle in 90 days, concerned fro , requesting a test. - History of Current Complaint Chief Complaint: UCGeneralIllness Stated Complaint: TEST Time Seen by Provider: 12/17/17 09:57 Hx Obtained From: Patient Hx Last Menstrual Period: October Onset/Duration: Gradual Onset, Lasting Weeks Timing: Constant Onset Severity: Mild Current Severity: Mild Pain Intensity: 0 - Allergy/Home Medications Allergies/Adverse Reactions: Allergies Allergy/AdvReac Type Severity Reaction Status Date / Time acyclovir Allergy Vision Loss Verified 12/17/17 09:49 amoxicillin [From Augmentin] Allergy Unknown Verified 12/17/17 09:49 Reaction Details clavulanic acid Allergy Unknown Verified 12/17/17 09:49 [From Augmentin] Reaction Details PMH/Surg Hx/FS Hx/Imm Hx Previously Healthy: Yes Psychological History: Depression - Surgical History Surgical History: None - Family History Known Family History: Negative: Hypertension, Diabetes Family History: Asthma - Social History Alcohol Use: None Substance Use Type: None Smoking Status (MU): Never Smoked Tobacco Have You Smoked in the Last Year: No Household Exposure Type: Cigarettes - Immunization History Most Recent Influenza Vaccination: Not the Season Most Recent Tetanus Shot: UTD Vaccination Up to Date: Yes Review of Systems Constitutional: Negative Skin: Negative Eyes: Negative ENT: Negative Respiratory: Negative Cardiovascular: Negative Gastrointestinal: Nausea Genitourinary: Negative Motor: Negative Neurovascular: Negative Musculoskeletal: Negative Neurological: Negative Psychological: Negative Is Patient Immunocompromised?: No All Other Systems Reviewed And Are Negative: Yes Physical Exam Triage Information Reviewed: Yes Appearance: Well-Appearing, No Pain Distress, Well-Nourished Vital Signs: Initial Vital Signs Temp 99.1 F 12/17/17 09:51 Pulse 102 12/17/17 09:51 Resp 14 12/17/17 09:51 BP 128/85 12/17/17 09:51 Pulse Ox 100 12/17/17 09:51 Vital Signs Reviewed: Yes Eye Exam: Normal ENT Exam: Normal Dental Exam: Normal Neck exam: Normal Neck: Positive: Supple, Nontender, No Lymphadenopathy Respiratory Exam: Normal Respiratory: Positive: Chest non-tender, Lungs clear, Normal breath sounds Cardiovascular Exam: Normal Cardiovascular: Positive: RRR, No Murmur, Pulses Normal Abdominal Exam: Normal Abdomen Description: Positive: Nontender, No Organomegaly, Soft Bowel Sounds: Positive: Present Musculoskeletal Exam: Normal Neurological Exam: Normal Psychological Exam: Normal Psychological: Positive: Normal Response To Family Skin Exam: Normal Course/Dx - Course Course Of Treatment: hx obtained, exam performed ,meds reviewed, Urine obtained. and is positive, patient was relieved and happy. DId recommend calling her PCP on tuesday to talk about her use of abilify and Zoloft - Differential Dx - Multi-Symptom Provider Diagnoses: . depression Discharge - Sign-Out/Discharge Documenting (check all that apply): Discharge/Admit/Transfer - Discharge Plan Condition: Stable Disposition: HOME Patient Education Materials: Nausea and Vomiting in (ED), ( ED) Referrals: No Primary Care Phys,NOPCP [Primary Care Provider] - Additional Instructions: 1. Please call your Doctor on Tuesday to talk about your use of Abilify and Zoloft while . 2. Increase fluid intake as tolerated and sudha is good fo nausea. - Billing Disposition and Condition Condition: STABLE Disposition: Home
== END 2017-12-17 10:14 | disposition home or self-care (01) ==
LOC: UCCORT 09:40
DX: O99.340 Other mental disorders complicating pregnancy, unspecified trimester (principal); F32.9 Major depressive disorder, single episode, unspecified; Z3A.00 Weeks of gestation of pregnancy not specified; Z88.3 Allergy status to other anti-infective agents; Z88.0 Allergy status to penicillin; Z88.8 Allergy status to other drugs, medicaments and biological substances
CPT/HCPCS: 84702; 99211; G0463

== ENCOUNTER 2019-09-03 10:32 | Emergency (ER) | payer OTHER ==
[2019-09-03 10:54] VITALS: BP 94/66
--- NOTE | 2019-09-03 10:55 | UC ---
UC General HPI - HPI Summary HPI Summary: Patient c/o hemorroidal pain Has a history of hemorroids Has of Hx of IBS Diet: Trying to get better but does have issues with constipation Has two children, which is when it started Seems worse now, has not tried anything differently at home - History of Current Complaint Chief Complaint: UCGI Stated Complaint: PERSONAL Time Seen by Provider: 09/03/19 10:37 Hx Last Menstrual Period: May Pain Intensity: 8 - Allergy/Home Medications Allergies/Adverse Reactions: Allergies Allergy/AdvReac Type Severity Reaction Status Date / Time acyclovir Allergy Vision Loss Verified 09/03/19 10:55 amoxicillin [From Augmentin] Allergy Unknown Verified 09/03/19 10:55 Reaction Details clavulanic acid Allergy Unknown Verified 09/03/19 10:55 [From Augmentin] Reaction Details Home Medications: Home Medications Hydrocortisone SUPP* [Anusol HC Supp*] 25 mg .SEE ORDER BID PRN #28 supp [Rx] PMH/Surg Hx/FS Hx/Imm Hx Previously Healthy: Yes - Surgical History Surgical History: Yes Surgery Procedure, Year, and Place: oral surgery-wisdom teeth - Family History Known Family History: Negative: Hypertension, Diabetes Family History: Asthma - Social History Alcohol Use: None Substance Use Type: None Smoking Status (MU): Never Smoked Tobacco Have You Smoked in the Last Year: No Household Exposure Type: Cigarettes - Immunization History Most Recent Influenza Vaccination: Not the 2013/2014 Season Most Recent Tetanus Shot: UTD Vaccination Up to Date: Yes Review of Systems All Other Systems Reviewed And Are Negative: Yes Physical Exam Triage Information Reviewed: Yes Appearance: Well-Appearing Vital Signs: Initial Vital Signs Temp 98.5 F 09/03/19 10:47 Pulse 76 09/03/19 10:47 Resp 18 09/03/19 10:47 BP 94/66 09/03/19 10:47 Pulse Ox 99 09/03/19 10:47 Vital Signs Reviewed: Yes Pelvic Exam: Positive: Other - Rectal exam: 2-3 cm nonthrombosed hemorroid, no fissure or erythema or drainage Course/Dx - Course Course Of Treatment: This is a 24 yr old with a hemorrhoid - non bleeding, not thrombosed Plan Continue warm sitz baths Recommend high fiber diet, consider miralax and benefiber to help with regular soft stools Use suppository as needed as directed If symptoms persist or worsen, consider follow up for further evaluation - Diagnoses Provider Diagnosis: Acute hemorrhoid Discharge ED - Sign-Out/Discharge Documenting (check all that apply): Patient Departure All imaging exams completed and their final reports reviewed: No Studies - Discharge Plan Condition: Good Disposition: HOME Prescriptions: Hydrocortisone SUPP* [Anusol HC Supp*] 25 mg .SEE ORDER BID PRN #28 supp PRN Reason: Pain - Moderate Patient Education Materials: Hemorrhoids (ED) Referrals: [place] Ring NP [Primary Care Provider] - Additional Instructions: Continue warm sitz baths Recommend high fiber diet, consider miralax and benefiber to help with regular soft stools Use suppository as needed as directed If symptoms persist or worsen, consider follow up for further evaluation - Billing Disposition and Condition Condition: GOOD Disposition: Home
== END 2019-09-03 11:15 | disposition home or self-care (01) ==
LOC: UCCORT 10:32
DX: K64.9 Unspecified hemorrhoids (principal); Z88.1 Allergy status to other antibiotic agents; Z88.0 Allergy status to penicillin
CPT/HCPCS: 99212; G0463